=== PATIENT | female | born 1970 | race African-American/Black ===

== ENCOUNTER → 2022-09-24 | Day surgery (SDC) | payer OTHER ==
[~2022-09-24] MED LIST: ACETAMINOPHEN/CODEINE 300MG - 30MG TAB ONE; CETIRIZINE HCL10 MG PO; DEXAMETHASONE SOD PHOS 10 MG/1 ML VIAL ONE; DEXMEDETOMIDINE HCL 2 ML ONE; EPINEPHRINE HCL 1:1000 1ML 1 MG/ML AMP ONE; FENTANYL CITRATE/PF 100MCG/2 ML INJ ONE; GLYCOPYRROLATE INJ 0.2 MG/ML VIAL ONE; JARDIANCE10 MG PO; LACTATED RINGER'S 1,000 ML ONE; LIDOCAINE 1% W/EPINEPHRINE 20 ML VIAL ONE; LIDOCAINE HCL 2% LOCAL INJ 5 ML SDV VIAL INJ ONE; MIDAZOLAM HCL 2 MG/2 ML VIAL ONE; MULTI-VITAMIN1 EACH PO; NABUMETONE500 MG PO; NEOSTIGMINE 1 MG/ML 10ML VIAL ONE; ONDANSETRON HCL INJ 2MG/ML 2ML 2 MG/ML VIAL ONE; POVIDONE IODINE 0.05% 0.05 % ML PO ONE; PROBIOTIC & AC1 EACH PO; PROPOFOL IV EMULSION 10 MG/ML 20 ML VIAL ONE; ROCURONIUM BROMIDE 10 MG/ML 5ML VIAL IV ONE; TURMERIC CURCU1 EACH PO; VENLAFAXINE HCL75 M2 PO; VITAMIN D3125 MCG PO
[2022-09-24 11:15] VITALS: TEMP 97.3
[2022-09-24 12:15] VITALS: BP 132/90; PULSE 70; RESP 16; O2SAT 96
== END | disposition home or self-care (01) ==
LOC: OR 07:09
PROVIDERS: ATTEND Otolaryngology Otolaryngology/Facial Plastic Surgery
DX: J34.2 Deviated nasal septum (principal); J34.89 Other specified disorders of nose and nasal sinuses; G47.33 Obstructive sleep apnea (adult) (pediatric); K21.9 Gastro-esophageal reflux disease without esophagitis; E11.9 Type 2 diabetes mellitus without complications; F41.9 Anxiety disorder, unspecified; Z79.84 Long term (current) use of oral hypoglycemic drugs; Z79.899 Other long term (current) drug therapy
CPT/HCPCS: 30520; 36415; 82948; 88304; 88311; 93005; J0171; J1100; J2405; J3010; J7121; 88300; J2001; J2250; J2710